=== PATIENT | male | born 1945 | race Caucasian/White ===

== ENCOUNTER → 2016-11-22 | Day surgery (SDC) | payer MEDICARE, OTHER ==
[~2016-11-22] MED LIST: CIPR500T4 PO; FELO5TAB PO; GLIM2TAB PO; GLIM4TAB PO; GLUCTAB PO; LACTATED RINGER'S 1,000 ML BAG IV ONE; METO50TA PO; MULT1TAB84 PO; NOVOLOGP2 SQ; PROPOFOL 200 MG/20 ML AMP IV ONE; TAB-TAB
== END | disposition home or self-care (01) ==
LOC: ESDC 09:53
PROVIDERS: ATTEND Internal Medicine Gastroenterology
DX: Z12.11 Encounter for screening for malignant neoplasm of colon (principal); K57.90 Diverticulosis of intestine, part unspecified, without perforation or abscess without bleeding; K29.70 Gastritis, unspecified, without bleeding; K29.80 Duodenitis without bleeding; K20.9 Esophagitis, unspecified; E66.09 Other obesity due to excess calories; E11.9 Type 2 diabetes mellitus without complications; Z79.84 Long term (current) use of oral hypoglycemic drugs
CPT/HCPCS: 00740; 00810; 43239; 45378; 82948; 88305; 88312; J3010; J7120

== ENCOUNTER 2016-12-01 09:31 | Inpatient (IN) | payer MEDICARE ==
[~2016-12-01] VITALS: Ht 185.4 cm; Wt 141.0 kg
[2016-12-14] MEDS ORDERED: NOVOLOGP2 SQ ×3 (13:55)
[2016-12-14] MEDS ORDERED: GLIM4TAB PO (13:55)
[2016-12-14] MEDS ORDERED: MULT1TAB84 PO (13:55)
[2016-12-14] MEDS ORDERED: GLUCTAB PO (13:55)
[2016-12-14] MEDS ORDERED: METO50TA PO (13:55)
[2016-12-15] VITALS: BP 137/67; PULSE 101; RESP 19; TEMP 98.1; O2SAT 96
[2016-12-15 06:50] VITALS: BP 120/70; PULSE 67; RESP 16; TEMP 98.1; O2SAT 96
[2016-12-15] MEDS ORDERED: metroNIDAZOLE 500 MG INJ 100 ML IV SCH (07:30)
[2016-12-15] MEDS ORDERED: LACTATED RINGER'S 1000 ML IV SCH (07:30)
[2016-12-15] MEDS ORDERED: ceFAZolin 2 GM PREMIX 50 ML IV SCH (07:30)
[2016-12-15] MEDS ORDERED: SCOPOLAMINE 1.5 MG PATCH T-DERMAL SCH (07:30)
[2016-12-15] MEDS ORDERED: METOPROLOL TARTRATE 25 MG TAB PO PRN (07:30)
[2016-12-15] MEDS: SODIUM CHLORID 0.9% 500 ML IV SCH (07:30)
[2016-12-15] MEDS ORDERED: APREPITANT 40 MG CAP PO SCH (07:30)
[2016-12-15] MEDS ORDERED: ONDANSETRON HCL 4 MG/2 ML VIAL IV PUSH SCH (07:30)
[2016-12-15] MEDS ORDERED: INSULIN HUMAN REGULAR 1,000 UNITS/10 ML VIAL SQ PRN (07:30)
[2016-12-15] MEDS ORDERED: ACETAMINOPHEN 1000 MG/100 ML VIAL IV SCH (07:30)
[2016-12-15] MEDS ORDERED: FAMOTIDINE 20 MG/2 ML VIAL ONE (10:01)
[2016-12-15] MEDS ORDERED: fentaNYL CITRATE 250 MCG/5 ML AMP ONE (10:01)
[2016-12-15] MEDS ORDERED: MIDAZOLAM HCL 2 MG/2 ML VIAL ONE (10:01)
[2016-12-15] MEDS ORDERED: DEXAMETHASONE SOD PHOS 4 MG/ML VIAL ONE (10:02)
[2016-12-15] MEDS ORDERED: BUPIVACAINE/EPINEPHRINE 0.25% PF 30 ML VIAL INFIL ONE (10:27)
[2016-12-15] MEDS ORDERED: METHYLENE BLUE 100 MG/10 ML VIAL OTHER ONE (10:57)
[2016-12-15] MEDS ORDERED: NEOSTIGMINE 3 MG/3 ML SYR IV ONE (12:07)
[2016-12-15] MEDS ORDERED: PROPOFOL 200 MG/20 ML AMP IV ONE (12:07)
[2016-12-15] MEDS ORDERED: LACTATED RINGER'S 1000 ML INJ 1,000 ML IV ONE (12:07)
[2016-12-15] MEDS ORDERED: ONDANSETRON HCL 4 MG/2 ML VIAL IV PUSH ONE (12:07)
[2016-12-15] MEDS ORDERED: ePHEDrine/NS 25 MG/5 ML SYR IV ONE (12:07)
[2016-12-15] MEDS ORDERED: PHENYLEPH/NS 1000 MCG/10 ML SYR IV ONE (12:07)
[2016-12-15] MEDS ORDERED: GLUCAGON 1 MG/ML VIAL OTHER PRN (12:45)
[2016-12-15] MEDS ORDERED: ACETAMINOPHEN 325MG/HYDROcodone 7.5MG/15ML UDC PO PRN (12:45)
[2016-12-15] MEDS ORDERED: SODIUM CHLORIDE 0.9% FLUSH 5 ML FLUSH IVF PRN (12:45)
[2016-12-15] MEDS ORDERED: diphenhydrAMINE HCL ELIXIR 12.5 MG/5 ML CUP PO PRN (12:45)
[2016-12-15] MEDS ORDERED: ACETAMINOPHEN 1000 MG/100 ML VIAL IV PRN (12:45)
[2016-12-15] MEDS ORDERED: diphenhydrAMINE HCL 50 MG/ML VIAL IV PRN (12:45)
[2016-12-15] MEDS ORDERED: ONDANSETRON HCL 4 MG/2 ML VIAL IV PRN ×2 (12:45)
[2016-12-15] MEDS ORDERED: NALOXONE HCL 0.4 MG/ML AMP IV PRN (12:45)
[2016-12-15] MEDS ORDERED: ENALAPRILAT 1.25 MG/ML VIAL IV PUSH PRN (12:45)
[2016-12-15] MEDS ORDERED: DEXTROSE 50% IN WATER 50 ML VIAL(D50) IV PUSH PRN (12:45)
[2016-12-15] MEDS ORDERED: Post-op Orders (for Pharmacy) MISC XX ONE (12:48)
[2016-12-15] MEDS: 1/2 NS + KCL 20 MEQ INJ 1,000 ML IV SCH ×3 (13:28→23:34)
[2016-12-15] MEDS ORDERED: DO NOT ADM ANY ANTICOAGULANT DRUGS XX PRN (13:30)
[2016-12-15] MEDS: MORPHINE SULFATE 30 MG/30 ML PCA IV SCH ×2 (13:31→19:56)
[2016-12-15] MEDS: METOCLOPRAMIDE HCL 10 MG/2 ML VIAL IVS SCH ×2 (13:33→18:23)
[2016-12-15] MEDS: PCA - TOTAL MG MORPHINE DELIVERED PER SHIFT SCH ×2 (15:30→21:48)
[2016-12-15 16:00] VITALS: BP 102/61; PULSE 92; RESP 19; TEMP 97.2; O2SAT 96
[2016-12-15] MEDS: metroNIDAZOLE 500 MG INJ 100 ML IV SCH ×2 (16:27→23:34)
[2016-12-15] MEDS: INSULIN NovoLIN REGULAR SUPPLEMENTAL SCALE SQ SCH ×2 (16:36→21:00)
[2016-12-15] MEDS: ENOXAPARIN SODIUM 40 MG/0.4 ML SYRINGE SQ SCH (17:00)
[2016-12-15 20:00] VITALS: BP 100/56; PULSE 107; RESP 17; TEMP 95.6; O2SAT 97
[2016-12-15] MEDS: SODIUM CHLORIDE 0.9% FLUSH 5 ML FLUSH IVF SCH (20:44)
[2016-12-16] VITALS (7 sets, daily range): BP systolic 105–143; BP diastolic 60–73; PULSE 73–100; RESP 16–17; TEMP 96.6–98.6; O2SAT 96–97
[2016-12-16] MEDS: SODIUM CHLORID 0.9% 500 ML IV SCH (00:10)
[2016-12-16] MEDS: METOCLOPRAMIDE HCL 10 MG/2 ML VIAL IVS SCH ×2 (02:05→06:49)
[2016-12-16 05:58] LABS: AUTOMATED NEUTROPHIL # 14.1 TH/MM3 (1.8-7.7); BASOPHIL % 0.1 % (0.0-2.0); HEMO FLAGS DIFF FINAL; LYMPH % 9.1 % (9.0-44.0); LYMPHOCYTE # 1.6 TH/MM3 (1.0-4.8); MEAN CORPUSCULAR HEMOGLOBIN 33.6 PG (27.0-34.0); MEAN CORPUSCULAR HGB CONC 34.3 % (32.0-36.0); MONO % 9.1 % (0.0-8.0); NEUT % 81.7 % (16.0-70.0); PLATELET COUNT 257 TH/MM3 (150-450); RED BLOOD COUNT 3.87 MIL/MM3 (4.50-5.90); RED CELL DISTRIBUTION WIDTH 13.5 % (11.6-17.2); WHITE BLOOD COUNT 17.3 TH/MM3 (4.0-11.0)
[2016-12-16] MEDS: PCA - TOTAL MG MORPHINE DELIVERED PER SHIFT SCH ×3 (06:00→21:01)
[2016-12-16 06:30] LABS: BICARBONATE 26.6 MEQ/L (21.0-32.0); MAGNESIUM 2.2 MG/DL (1.5-2.5); POTASSIUM 4.6 MEQ/L (3.5-5.1)
[2016-12-16] MEDS: SUCRALFATE 1 GM/10 ML CUP PO SCH ×3 (06:48→17:41)
[2016-12-16] MEDS: INSULIN NovoLIN REGULAR SUPPLEMENTAL SCALE SQ SCH ×4 (06:56→21:00)
[2016-12-16] MEDS: SODIUM CHLORIDE 0.9% FLUSH 5 ML FLUSH IVF SCH ×2 (08:07→19:59)
[2016-12-16] MEDS: metroNIDAZOLE 500 MG INJ 100 ML IV SCH (08:07)
[2016-12-16] MEDS ORDERED: METOPROLOL TARTRATE 50 MG TAB PO SCH (09:00)
[2016-12-16] MEDS ORDERED: PANTOPRAZOLE SODIUM 40 MG VIAL IVP SCH (09:00)
[2016-12-16] MEDS ORDERED: PANTOPRAZOLE SOD 40 MG DELAYED RELEASE TAB PO SCH (09:00)
[2016-12-16] MEDS ORDERED: SODIUM CHLOR 0.9% 1000 ML INJ 1,000 ML IV ONE (09:15)
[2016-12-16] MEDS: metFORMIN HCL 500 MG TAB PO SCH ×2 (09:15→17:41)
[2016-12-16] MEDS: MORPHINE SULFATE 30 MG/30 ML PCA IV SCH (11:23)
[2016-12-16] MEDS ORDERED: METOCLOPRAMIDE HCL 10 MG/2 ML VIAL IVS PRN (12:45)
[2016-12-16] MEDS: 1/2 NS + KCL 20 MEQ INJ 1,000 ML IV SCH ×3 (13:47→22:00)
[2016-12-16] MEDS: ENOXAPARIN SODIUM 40 MG/0.4 ML SYRINGE SQ SCH (16:42)
[2016-12-16] MEDS: ACETAMINOPHEN 325MG/HYDROcodone 7.5MG/15ML UDC PO PRN (21:00)
[2016-12-17] VITALS: BP_SYST 123; BP_SYST 97; BP_DIAS 123; BP_DIAS 75; PULSE 81; RESP 17; TEMP 98; O2SAT 97
[2016-12-17] MEDS: PCA - TOTAL MG MORPHINE DELIVERED PER SHIFT SCH
[2016-12-17] MEDS: ACETAMINOPHEN 325MG/HYDROcodone 7.5MG/15ML UDC PO PRN ×2 (02:50→09:20)
[2016-12-17] MEDS: 1/2 NS + KCL 20 MEQ INJ 1,000 ML IV SCH ×2 (04:32)
[2016-12-17] MEDS: SUCRALFATE 1 GM/10 ML CUP PO SCH ×2 (05:36)
[2016-12-17] MEDS: INSULIN NovoLIN REGULAR SUPPLEMENTAL SCALE SQ SCH (05:38)
[2016-12-17 06:01] LABS: BICARBONATE 25.7 MEQ/L (21.0-32.0); MAGNESIUM 2.1 MG/DL (1.5-2.5); POTASSIUM 4.7 MEQ/L (3.5-5.1)
--- NOTE | 2016-12-17 06:59 | HHI.PR ---
Subjective Subjective Notes pt comfortable no cp no sob kyle liquids Objective Vitals/I&O Vital Signs Date Time Temp Pulse Resp B/P Pulse Ox O2 Delivery O2 Flow Rate FiO2 12/17/16 03:50 18 12/17/16 00:00 98.0 81 123/75 97 12/16/16 16:33 Nasal Cannula 2.00 Labs Laboratory Tests Test 12/17/16 04:37 Sodium Level 136 Potassium Level 4.7 Chloride Level 102 Carbon Dioxide Level 25.7 Anion Gap 8 Blood Urea Nitrogen 26 Creatinine 1.27 Estimat Glomerular Filtration 56 Rate Random Glucose 163 Calcium Level 8.8 Magnesium Level 2.1 Abdomen: Post-op tenderness Extremities: Perfused Wound Wound : Wound Location: Abdomen Appearance: Clean & Dry A/P Assessment and Plan s/p [id number] POD #2 doing well d/c home today Pranay Thomas MD Dec 17, 2016 06:59
[2016-12-17 08:34] VITALS: BP 137/74; PULSE 101; RESP 18; TEMP 96.2; O2SAT 97
--- NOTE | 2016-12-26 20:15 | MP ---
cc: RICCI THOMAS DATE OF SURGERY: 12/15/2016. PREOPERATIVE DIAGNOSIS: Morbid obesity with BMI of 41 complicated by type 2 diabetes and essential hypertension. POSTOPERATIVE DIAGNOSIS: Morbid obesity with BMI of 41 complicated by type 2 diabetes and essential hypertension. OPERATIVE PROCEDURE PERFORMED: Laparoscopic Rdudy-en-Y gastric bypass with 100 cm Ruddy limb antigastric, antecolic. SURGEON: Ricci Thomas MD. ANESTHESIA: General endotracheal anesthesia. ESTIMATED BLOOD LOSS: Scant. FINDINGS: Fatty liver. SPECIMENS: None. COMPLICATIONS: None. DESCRIPTION OF THE PROCEDURE IN DETAIL: The patient was brought to the operating room and placed on the operating table in supine position, bilateral sequential inflation device placed on lower extremities, general anesthesia instituted, antibiotics initiated. The abdomen was prepped and draped sterilely. A poin 18-cm distal to the xiphoid in the midline anesthetized with 0.25% Marcaine with epinephrine. The skin incision was made, a 5-mm OptiView port placed under direct vision and pneumoperitoneum was created. Under direct vision a 5-mm left upper quadrant, 12-mm left upper quadrant, 12-mm right upper quadrant and 5-mm right upper quadrant ports were placed. Prior to placement of all ports, the skin and peritoneum were anesthetized with 0.25% Marcaine with epinephrine. The patient's omentum was lifted into the upper abdomen. It was split down the middle to create a path for the Ruddy limb. The ligament of Treitz was identified, a point 40 cm distal identified. The small bowel was divided in this region using an Octa Flex stapler vascular load reinforced with SeamGuard. The distal segment was brought up for a distance of 100 cm, enterotomy created in this region, enterotomy in the biliopancreatic limb and a [id number] stapled jejunojejunostomy created in the usual manner. The mesenteric defect at the jejunojejunostomy was closed with 2-0 Surgidac suture in a running manner. The patient was placed in reverse Trendelenburg position with the left side up. The Ashley-Flex retractor was placed. The left lobe of the liver was retracted. The angle of His was taken down bluntly, a point 5 cm distal to the GE junction along the lesser curve identified, the lesser sac entered using blunt dissection. The stomach was partitioned horizontally using an Octa-Flex stapler blue load, an additional firing taken directed towards the angle of His to completely divide the stomach. A gastrotomy created in the new stomach, enterotomy in the Ruddy limb and gastrojejunostomy created, stomal opening of 2 cm. An 18-Latvian OG tube was placed across the anastomosis, the defect then closed in two layers of running 2-0 Vicryl. Prior to placement of the second layer, methylene blue instilled through the OG tube. There was no evidence of extravasation. Evicel was then placed over the gastrojejunostomy, jejunojejunostomy and all staple lines. The operative field inspected and hemostasis was present. The CO2 was released, all ports were removed. All skin incisions were closed with 4-0 Monocryl. The abdominal wall was cleaned and a sterile dressing placed. The patient was awakened and taken to the recovery room. MD BRITTANY Carranza/JAKE /11:18 AM /8:12 PM RICKY
== END 2016-12-17 09:38 | disposition home or self-care (01) | DRG 621 ==
LOC: HSDI 12-15 06:02 → N07A 12-15 14:48
PROVIDERS: ADMIT Surgery; ATTEND Surgery
PROC: 0D164ZA Bypass Stomach to Jejunum, Percutaneous Endoscopic Approach (ICD-10-PCS; principal; 2016-12-15 10:25)
DX: E66.01 Morbid (severe) obesity due to excess calories (principal); K76.0 Fatty (change of) liver, not elsewhere classified; E11.9 Type 2 diabetes mellitus without complications; Z68.41 Body mass index [BMI] 40.0-44.9, adult; I10 Essential (primary) hypertension
CPT/HCPCS: 80048; 82948; 83735; 85025; 94150; J0131; J0690; J1100; J1650; J2250; J2270; J2370; J2405; J2710; J2765; J3010; J7030; J7120; J8501